=== PATIENT | female | born 1985 | race Caucasian/White ===

== ENCOUNTER 2016-03-22 09:45 | Outpatient (CLI) | payer OTHER ==
[~2016-03-22 09:45] MED LIST: OXYC-106 PO
--- NOTE | 2016-03-22 11:43 | DIAGNOSTIC IMAGING REPORT ---
MRI OF THE LUMBAR SPINE WITH AND WITHOUT CONTRAST CLINICAL HISTORY: Back pain radiating into lower extremities. Leg tremors. Previous injury. COMPARISON STUDY: MRI of the lumbar spine April 08, 2013 and May 10, 2013. TECHNIQUE: Utilizing a 1.5 Elma magnet and dedicated coil, multiplanar, multiecho imaging of the lumbar spine was performed before and after uneventful IV administration of 4.5 mL of Gadavist. FINDINGS: For purposes of numbering on this exam, the L5-S1 disc space is assigned to axial image 27 of 30. Alignment of the lumbar spine is anatomic. Vertebral body heights are maintained. There is no intracanalicular mass or fluid collection. The conus terminates at the lower L1 level. The paravertebral soft tissues are unremarkable. A small amount of fluid within the pelvis may be physiologic. There is no marrow edema or marrow replacement. L1-2: The central canal and neural foramen are patent. L2-3: The central canal and neural foramen are patent. L3-4: The central canal and neural foramen are patent. L4-5: The central canal and neural foramen are patent. L5-S1: The central canal and neural foramen are patent. IMPRESSION: Unremarkable MRI of the lumbar spine. Patent central canal and neural foramen. Electronically signed by: Lj Durand M.D. 03/22/2016 11:41 AM
[2016-03-22] MEDS ORDERED: GADAVIST IV PRN (11:45)
== END 2016-07-20 21:41 | disposition other institution (70) ==
LOC: C.MRI 09:45
DX: M51.17 Intervertebral disc disorders with radiculopathy, lumbosacral region (principal)